=== PATIENT | male | born 1970 | race Caucasian/White ===

== ENCOUNTER 2022-06-17 15:00 | Emergency (ER) | payer OTHER ==
[~2022-06-17] VITALS: Ht 193 cm; Wt 106.6 kg
[2022-06-17] MEDS ORDERED: MEDROL DOSEPAK4 MG PO (15:16)
[2022-06-17] MEDS ORDERED: EPIPEN 2-P0.3 MG/0.3 IJ (15:16)
[2022-06-17] MEDS ORDERED: CLARITIN10 MG PO (15:16)
== END 2022-06-17 18:24 | disposition home or self-care (01) ==
LOC: ED 15:00
DX: T63.441A Toxic effect of venom of bees, accidental (unintentional), initial encounter (principal); Y92.89 Other specified places as the place of occurrence of the external cause; Z88.2 Allergy status to sulfonamides

== ENCOUNTER 2022-10-01 00:42 | Emergency (ER) | payer OTHER ==
[~2022-10-01 00:42] MED LIST: CLARITIN10 MG PO; EPIPEN 2-P0.3 MG/0.3 IJ; MEDROL DOSEPAK4 MG PO
== END 2022-10-01 04:51 | disposition home or self-care (01) ==
LOC: ED 00:42
DX: S16.1XXA Strain of muscle, fascia and tendon at neck level, initial encounter (principal); S46.812A Strain of other muscles, fascia and tendons at shoulder and upper arm level, left arm, initial encounter; Z88.2 Allergy status to sulfonamides; F10.90 Alcohol use, unspecified, uncomplicated; V53.5XXA Driver of pick-up truck or van injured in collision with car, pick-up truck or van in traffic accident, initial encounter; Y93.89 Activity, other specified; Y92.410 Unspecified street and highway as the place of occurrence of the external cause; Y99.8 Other external cause status

== ENCOUNTER 2025-03-08 17:23 | Emergency (ER) | payer OTHER ==
[~2025-03-08] VITALS: Ht 193 cm; Wt 108.9 kg
[2025-03-08] MEDS ORDERED: LIDOCAINE HCL/EPINEPHRINE 50 ML VIAL ONE (19:04)
[2025-03-08] MEDS ORDERED: CEPHALEXIN 500 MG 2 CAP ED PACK PO SCH (19:05)
[2025-03-08] MEDS ORDERED: Bacitracin Zinc 14 GM TUBE T ONE (19:05)
[2025-03-08] MEDS ORDERED: CEPHALEXIN500 M1 PO (19:09)
== END 2025-03-08 19:24 | disposition home or self-care (01) ==
LOC: ED 17:23
DX: S60.455A Superficial foreign body of left ring finger, initial encounter (principal); Z79.899 Other long term (current) drug therapy; Z88.2 Allergy status to sulfonamides; X58.XXXA Exposure to other specified factors, initial encounter; Y93.89 Activity, other specified; Y92.89 Other specified places as the place of occurrence of the external cause; Y99.8 Other external cause status

== ENCOUNTER → 2025-03-10 | Day surgery (SDC) | payer OTHER ==
[~2025-03-10] VITALS: Ht 193 cm; Wt 112.0 kg
[~2025-03-10] MED LIST changes: +BUPivacaine 0.5% 10 ML VIAL ONE; +CEPHALEXIN500 M1 PO; +Lidocaine Hydrochloride 5 ML AMP ONE; +ceFAZolin sodium 2GM/20ML IV ONE; +ceFAZolin sodium/sodium chlor 20 ML IV ONE
[2025-03-10 14:27] VITALS: BP 150/74
[2025-03-10 15:24] VITALS: BP 151/91
[2025-03-10 15:35] VITALS: BP 179/76
[2025-03-10 15:40] VITALS: BP 146/89
[2025-03-10 15:45] VITALS: BP 148/92
[2025-03-10 15:50] VITALS: BP 156/86
== END | disposition home or self-care (01) ==
LOC: SDC 12:41
PROVIDERS: ATTEND Orthopaedic Surgery
DX: S60.455A Superficial foreign body of left ring finger, initial encounter (principal); F10.90 Alcohol use, unspecified, uncomplicated; Z87.891 Personal history of nicotine dependence; Z98.890 Other specified postprocedural states; Z88.2 Allergy status to sulfonamides; Z79.899 Other long term (current) drug therapy; X58.XXXA Exposure to other specified factors, initial encounter; Y93.89 Activity, other specified; Y92.89 Other specified places as the place of occurrence of the external cause; Y99.8 Other external cause status